=== PATIENT | male | born 1995 | race Caucasian/White ===

== ENCOUNTER 2017-02-13 12:30 | Inpatient (IN) | payer SELFPAY ==
[2017-02-13] MEDS ORDERED: cefTRIAXone SODIUM 1 GM VIAL ONE ×2 (13:04→13:08)
[2017-02-13] MEDS ORDERED: 0.9 % SODIUM CHLORIDE 50 ML IV ONE (13:05)
[2017-02-13] MEDS ORDERED: ONDANSETRON HCL/PF 4 MG/ 2ML VIAL IVP ONE (13:11)
[2017-02-13] MEDS ORDERED: KETOROLAC TROMETHAMINE 30 MG/1ML VIAL IVP ONE (13:11)
[2017-02-13] MEDS ORDERED: diphenhydrAMINE HCL 50 MG/ML VIAL IVP ONE (13:11)
[2017-02-13 13:17] LABS: BASOPHILS % 0.8 (0.0-1.5); EOSINOPHILS % 5.1 % (0.0-6.8); MEAN CORPUSCULAR HEMOGLOBIN 28.1 pg (28.0-34.0); MEAN CORPUSCULAR VOLUME 81.8 fl (80.0-100.0); MONOCYTES % 4.8 % (0.0-11.0); NEUTROPHILS # 14.1 # k/uL (1.4-7.7)
--- NOTE | 2017-02-13 13:18 | ED Physician Documentation ---
Skin Rash - HISTORIAN Historian: patient - HPI Stated Complaint: insect bite Chief Complaint: Skin Rash Additional Information: ? insect/spider bite 3 days ago. Does not remember a specific sting. Front/Back of Body, Lg (Saline): 1 - edema/erythema with central darkened area suggestive of spider bite Onset: days ago (3) Timing: still present Duration: worse Location: facial Quality: painful Identified Cause?: No When Did Symptoms Start: 02/10/17 Context: Medication Exposure: none Context: Food Exposure: none Context: Other Exposure: spider bite (probable) Further Comments: no - ROS CONST: none CVS/RESP: none EYES/ENT: none GI/: none MS/SKIN/LYMPH: none NEURO/PSYCH: none - PAST HX Past History: none Other History: none Surgeries/Procedures: Yes (hernia) Immunizations: UTD Allergies/Adverse Reactions: Allergies Allergy/AdvReac Type Severity Reaction Status Date / Time No Known Allergies Allergy Verified 02/13/17 12:41 Home Medications: Ambulatory Orders Medication Instructions Recorded NK [NK] 02/13/17 - SOCIAL HX Smoking History: cigarettes Alcohol Use: none Drug Use: none - FAMILY HX Family History: none - VITAL SIGNS Vital Signs: Vital Signs Temp Pulse Resp BP Pulse Ox 98.9 F 90 16 130/83 100 02/13/17 12:35 02/13/17 12:35 02/13/17 12:35 02/13/17 12:35 02/13/17 12:35 - REVIEWED ASSESSMENTS Nursing Assessment Reviewed: Yes Vitals Reviewed: Yes Progress - Results/Orders Results/Orders: cbc, cmp, ua ordered - Progress Progress: pt. given 50 mg Benadryl ivp, Toradol 30 mg ivp, Zofran 8 mg ivp, 2 grams rocephin ivpb, 1 liter ns, 20 meq kcl p.o. in er Critical Care Note - Critical Care Note Total Time (mins): 0 ED Results Lab/Radiology - Lab Results Lab Results: Lab Results 02/13/17 02/13/17 13:05 13:05 WBC 19.30 K/ul H K/ul (4.00-12.00) RBC 5.84 M/ul H M/ul (3.90-5.20) Hgb 16.4 g/dL g/dL (12.0-18.0) Hct 47.7 % % (37.0-53.0) MCV 81.8 fl fl (80.0-100.0) MCH 28.1 pg pg (28.0-34.0) MCHC 34.3 g/dL g/dL (30.0-36.0) RDW 12.7 % % (11.3-14.3) Plt Count 325 K/mm3 K/mm3 (130-400) Neut % (Auto) 72.8 % % (39.0-79.0) Lymph % (Auto) 15.3 % L % (16.0-50.0) Saline % (Auto) 4.8 % % (0.0-11.0) Eos % (Auto) 5.1 % % (0.0-6.8) Baso % (Auto) 0.8 (0.0-1.5) Neut # (Auto) 14.1 # k/uL H # k/uL (1.4-7.7) Lymph # (Auto) 3.0 # k/uL # k/uL (0.6-4.0) Saline # (Auto) 0.9 # k/uL # k/uL (0.0-0.9) Eos # (Auto) 1.0 # k/uL H # k/uL (0.0-0.6) Baso # (Auto) 0.2 # k/uL # k/uL (0.0-0.5) Reactive Lymphs % 1.3 % % (0.0-5.0) Reactive Lymphs # 0.3 # k/uL # k/uL (0.0-0.8) Sodium 135 mmol/L L mmol/L (136-145) Potassium 3.4 mmol/L L mmol/L (3.5-5.0) Chloride 92 mmol/L L mmol/L (98-110) Carbon Dioxide 34 mmol/L H mmol/L (20-32) BUN 6 mg/dL L mg/dL (10-26) Creatinine 0.8 mg/dL mg/dL (0.4-1.5) Estimated Creat Clear 125 Est GFR ( Amer) > 60 (60 - ) Est GFR (Non-Af Amer) > 60 (60 - ) Glucose 92 mg/dL mg/dL (70-99) Calcium 11.2 mg/dL H mg/dL (8.5-10.5) Total Bilirubin 0.7 mg/dL mg/dL (0.2-1.2) AST 23 U/L U/L (0-41) ALT 13 U/L U/L (0-45) Alkaline Phosphatase 80 U/L U/L (46-116) Total Protein 9.2 g/dL H g/dL (6.0-8.5) Albumin 5.4 g/dL g/dL (3.0-5.5) - Radiology Radiology Impressions: none ordered - Orders Orders: ED Orders Category Date Time Status Place IV Lock 1T Care 02/13/17 13:01 Active BLOOD CULTURE Routine Lab 02/13/17 13:23 Received CBC/PLATELET/DIFF Routine Lab 02/13/17 13:05 Completed CMP Routine Lab 02/13/17 13:05 Completed LACTIC ACID Routine Lab 02/13/17 13:22 Received URINALYSIS Routine Lab 02/13/17 Ordered 0.9 % Sodium Chloride [Normal Saline] 1,000 ml Med 02/13/17 13:30 Ordered IV .Q1H 0.9 % Sodium Chloride [Sodium Chloride] 50 ml Med 02/13/17 13:05 Discontinued IV .STK-MED Ketorolac Tromethamine [Toradol] Med 02/13/17 13:11 Discontinued 30 mg IVP NOW ONE Ondansetron HCl/Pf [Zofran 4 mg/2 ml] Med 02/13/17 13:11 Discontinued 8 mg IVP NOW ONE Potassium Chloride [Klor-Con M20] Med 02/13/17 14:06 Discontinued 20 meq PO NOW ONE cefTRIAXone SODIUM ADVANTAGE [Rocephin Advantage] 2 gm Med 02/13/17 14:00 Ordered Normal Saline Add-[place] [Sodium Chloride] 50 ml IV QD cefTRIAXone SODIUM [Rocephin] Med 02/13/17 13:04 Discontinued 1 gm .ROUTE .STK-MED ONE cefTRIAXone SODIUM [Rocephin] Med 02/13/17 13:08 Discontinued 1 gm .ROUTE .STK-MED ONE diphenhydrAMINE HCL [Benadryl] Med 02/13/17 13:11 Discontinued 50 mg IVP NOW ONE Skin Rash Physical Exam - EXAM General Appearance: alert, moderate distress Skin: warm,dry, abscess, tender indurated area Location: face Character: asymmetric, patchy Symptoms: warmth, tenderness, swelling, induration Extremities: non-tender, nml ROM, no edema EENT: lips nml, gums nml, pharynx nml, other (right dagmar perioribital edema, left eye lesser degree) Neck: trachea midline, no swelling Respiratory: no resp distress, chest non-tender, breath sounds normal CVS: reg. rate & rhythm, heart sounds nml Abdomen: non-tender, no organomegaly, nml bowel sounds Neuro/Psych: oriented x3, CN's nml as tested, motor nml, sensation nml, mood/ affect nml Discharge Clincal Impression: Abscess Cellulitis Qualifiers: Site of cellulitis: face Qualified Code(s): L03.211 - Cellulitis of face Referrals: Primary Doctor,No [REFERRING] - 2 Days Home Medications: Ambulatory Orders NK [NK] 02/13/17 Comments: Case discussed with Dr. Lizama who accepts admission Condition: Stable Decision to Admit: [id number] Date of Decison to Admit: 02/13/17 Decision Time: 14:20
[2017-02-13 13:29] LABS: eGFR (African) > 60; eGFR (Non-African) > 60
[2017-02-13] MEDS ORDERED: 0.9 % SODIUM CHLORIDE 1,000 ML IV SCH ×2 (13:30→18:31)
[2017-02-13] MEDS ORDERED: [UNRECOGNIZED DRUG - OTHER] IV SCH (14:00)
[2017-02-13] MEDS ORDERED: POTASSIUM CHLORIDE 20 MEQ TABLET.ER PO ONE (14:06)
[2017-02-13 16:35] VITALS: BMI 20.2
--- NOTE | 2017-02-13 18:21 | History and Physical Report ---
History of Present Illnes - History of Present Illness Reason for Visit: facial infection History of Present Illness: 22yo white male who sustained a spider bite, ? brown recluse, one week ago. Started toswelling and become red the nex day. Has gradually gotten worse. No fever or chill noted. Was seen in the ED and felt to have a cellulitis and was admitted to the hospital for further evaluation and treatment. - Past Medical History Renal/: Other - Past Surgical History Past Surgical History: Other (bilateral hernia repair, repair for strabismus) - Past Family History Mother Family History: (at 53yo unkown cause) Father Family History: None (good health) Brother 1 Family History: None (good health) Sister 1 Family History: None (good health) - Past Social History Smoke: <1 pack per day (1/2 ppd) Alcohol: None Drugs: None Lives: With Family Domestic Violence: Negative - Health Maintenance Health Maintenance: Influenza Vaccine. denies: Cholesterol, Pneumococcal Vaccine Influenza Vaccine: Current for this Influenza Season Pneumonia Vaccine: No Resuscitation Status: Resusciation Status Resuscitation Status Full Code - Unable to Obtain History Unable to Obtain: No Review of Systems - Review of Systems Constitutional: negative: Fever, Chills Eyes: negative: pain, vision change, conjunctivae inflammation ENT: negative: Ear Pain, Ear Discharge, Nose Pain, Nose Discharge, Nose Congestion, Mouth Pain, Mouth Swelling, Throat Pain, Throat Swelling Respiratory: negative: Cough, Dry, Shortness of Breath, Hemoptysis, SOB with Excertion, Sputum, Wheezing Cardiovascular: negative: Chest Pain, Palpitations, Paroxysmal Noc. Dyspnea, Light Headedness Gastrointestinal: negative: Nausea, Vomiting, Abdominal Pain, Diarrhea, Constipation, Hematochezia Genitourinary: negative: Dysuria, Frequency, Hematuria Musculoskeletal: negative: Neck Pain, Shoulder Pain, Arm Pain, Back Pain Skin: Other (see PI). negative: Rash Neurological: negative: Weakness, Numbness - Medications/Allergies Allergies/Adverse Reactions: Allergies Allergy/AdvReac Type Severity Reaction Status Date / Time No Known Allergies Allergy Verified 02/13/17 12:41 Current Inpatient Medications: Current Inpatient Medications Ceftriaxone Sodium 2 gm/ (Sodium Chloride) 50 mls @ 50 mls/hr IV QD GERALD Last Admin: 02/13/17 13:20 Dose: 50 mls/hr Sodium Chloride (Normal Saline) 1,000 mls @ 1,000 mls/hr IV .Q1H GERALD Last Admin: 02/13/17 13:10 Dose: 1,000 mls/hr Exam - Exam Vital Signs: Vital Signs (72 hours) 02/13/17 02/13/17 02/13/17 14:45 15:14 18:12 Temperature 99.4 F 99.4 F 97.5 F L Pulse Rate [ 66 75 78 Right Pulse ox] Respiratory 16 16 16 Rate Blood Pressure 120/62 122/65 113/53 [Left Arm] O2 Sat by Pulse 98 96 97 Oximetry General: Alert, Oriented to Person, Oriented to Place, Oriented to Time, Cooperative, Mild distress HEENT: Atraumatic, PERRLA, Mouth Mucous membr. moist/[place], Nose Mucous membr. moist/[place], Dentition Normal, Hearing Grossly Normal Neck: Normal Range of Motion. No: Lymphadenopathy Carotids: WNL Thyroid: WNL Lungs: Clear to auscultation, Normal air movement, Speaks full Sentences, Respiratory Distress. No: Wheezes, Rales, Rhonchi Cardiovascular: Regular rate, Normal S1, Normal S2, No murmurs Abdomen: Normal bowel sounds, Soft, No tenderness, No hepatospenomegaly, No masses Integumentary: Normal, [place], Warm. No: Other (swelling to the right periorbital area, erythematous and tender) Extremities: No clubbing, No cyanosis, No edema, Normal pulses Neurological: Normal gait, Normal speech, Strength Equal Bilat, Sensation intact , Cranial nerves 3-12 NL, Reflexes 2+ Psych/Mental Status: Mental status NL, Mood NL, Appropriate Affect, Intact Judgment Assessment/Plan - Assessment/Plan (1) Cellulitis Status: Acute Qualifiers: Site of cellulitis: face Qualified Code(s): L03.211 - Cellulitis of face Assessment: Gerardo continue with ceftriaxone and monitor CBC. VTE Assessment - RISK FACTOR SCORE VTE RISK FACTOR SCORES: OTHER (no risk factors) - RISK VTE LOW RISK: SCORE OF 1 OR LESS (RISK PROXIMAL DVT 0.4%) NO PROPHYLAXIS NEEDED
[2017-02-13] MEDS ORDERED: ACETAMINOPHEN 325 MG TABLET PO PRN (18:40)
[2017-02-13] MEDS ORDERED: traMADol HCL 50 MG TABLET PO PRN (18:41)
[2017-02-14 06:41] LABS: BASOPHILS % 0.9 (0.0-1.5); EOSINOPHILS % 8.3 % (0.0-6.8); MEAN CORPUSCULAR HEMOGLOBIN 27.8 pg (28.0-34.0); MEAN CORPUSCULAR VOLUME 84.2 fl (80.0-100.0); MONOCYTES % 5.8 % (0.0-11.0)
--- NOTE | 2017-02-14 08:09 | Inpatient Progress Note ---
Subjective - Required Recertification Statement I anticipate X number of days because-include discharge plan: 1 day - Review of Systems Subjective: Patient is doing better. States that the facial area is not as tender, he is able to slightly open his eye. Does note complain of any eye pain or problems. Has ran a low grade fever last noc. General: Chills HEENT: Denies: Head Aches Objective - Exam Vitals and I&O: Vital Signs Temp 98.7 F 02/14/17 07:35 Pulse 85 02/14/17 07:35 Resp 20 02/14/17 07:35 BP 115/78 02/14/17 07:35 Pulse Ox 98 02/14/17 07:35 Intake & Output 02/13/17 02/13/17 02/14/17 11:59 23:59 11:59 Intake Total 120 Balance 120 Weight 55.338 kg Intake: Oral 120 Other: Voiding Method Toilet Toilet General: Alert, Oriented to Person, Oriented to Place, Oriented to Time, Cooperative HEENT: Atraumatic Neck: Supple, No JVD, No LAD Lungs: Clear to auscultation, Normal air movement, Speaks full Sentences. No: Wheezes, Rales, Rhonchi Cardiovascular: Regular rate, Normal S1, Normal S2, No murmurs Skin: Cellulitis (right periorbital area. Swelling is slightly improved. warp bleaching vat tender to touch and erythematous. ) Psych/Mental Status: Mental status NL, Appropriate Affect - Results Results: Laboratory Results WBC 11.19 K/ul (4.00-12.00) 02/14/17 06:20 RBC 5.22 M/ul (3.90-5.20) H 02/14/17 06:20 Hgb 14.5 g/dL (12.0-18.0) 02/14/17 06:20 Hct 44.0 % (37.0-53.0) 02/14/17 06:20 MCV 84.2 fl (80.0-100.0) 02/14/17 06:20 MCH 27.8 pg (28.0-34.0) L 02/14/17 06:20 MCHC 33.0 g/dL (30.0-36.0) 02/14/17 06:20 RDW 12.8 % (11.3-14.3) 02/14/17 06:20 Plt Count 288 K/mm3 (130-400) 02/14/17 06:20 Neut % (Auto) 53.5 % (39.0-79.0) 02/14/17 06:20 Lymph % (Auto) 29.8 % (16.0-50.0) 02/14/17 06:20 [place] % (Auto) 5.8 % (0.0-11.0) 02/14/17 06:20 Eos % (Auto) 8.3 % (0.0-6.8) H 02/14/17 06:20 Baso % (Auto) 0.9 (0.0-1.5) 02/14/17 06:20 Neut # (Auto) 6.0 # k/uL (1.4-7.7) 02/14/17 06:20 Lymph # (Auto) 3.3 # k/uL (0.6-4.0) 02/14/17 06:20 [place] # (Auto) 0.6 # k/uL (0.0-0.9) 02/14/17 06:20 Eos # (Auto) 0.9 # k/uL (0.0-0.6) H 02/14/17 06:20 Baso # (Auto) 0.1 # k/uL (0.0-0.5) 02/14/17 06:20 Reactive Lymphs % 1.7 % (0.0-5.0) 02/14/17 06:20 Reactive Lymphs # 0.2 # k/uL (0.0-0.8) 02/14/17 06:20 Sodium 135 mmol/L (136-145) L 02/13/17 13:05 Potassium 3.4 mmol/L (3.5-5.0) L 02/13/17 13:05 Chloride 92 mmol/L (98-110) L 02/13/17 13:05 Carbon Dioxide 34 mmol/L (20-32) H 02/13/17 13:05 BUN 6 mg/dL (10-26) L 02/13/17 13:05 Creatinine 0.8 mg/dL (0.4-1.5) 02/13/17 13:05 Estimated Creat Clear 125 02/13/17 13:05 Est GFR ( Amer) > 60 (60-) 02/13/17 13:05 Est GFR (Non-Af Amer) > 60 (60-) 02/13/17 13:05 Glucose 92 mg/dL (70-99) 02/13/17 13:05 Calcium 11.2 mg/dL (8.5-10.5) H 02/13/17 13:05 Total Bilirubin 0.7 mg/dL (0.2-1.2) 02/13/17 13:05 AST 23 U/L (0-41) 02/13/17 13:05 ALT 13 U/L (0-45) 02/13/17 13:05 Alkaline Phosphatase 80 U/L (46-116) 02/13/17 13:05 Total Protein 9.2 g/dL (6.0-8.5) H 02/13/17 13:05 Albumin 5.4 g/dL (3.0-5.5) 02/13/17 13:05 Assessment/Plan - Assessment/Plan (1) Cellulitis Status: Acute Current Visit: Yes Qualifiers: Site of cellulitis: face Qualified Code(s): L03.211 - Cellulitis of face Assessment: Will continue with rocephin IV. Hope to discharge in AM.
[2017-02-14] MEDS ORDERED: SALINE FLUSH 10 ML DISP.SYRIN IVF ONE (13:47)
[2017-02-14] MEDS ORDERED: cefTRIAXone SODIUM 1 GM in 0.9 % SODIUM CHLORIDE 50 ML IV SCH (14:00)
[2017-02-14] MEDS ORDERED: [UNRECOGNIZED DRUG - OTHER] IV SCH (14:00)
[2017-02-14] MEDS ORDERED: ONDANSETRON HCL/PF 4 MG/ 2ML VIAL IVP PRN (19:56)
[2017-02-14] MEDS: cefTRIAXone SODIUM ADVANTAGE 1 GM in NORMAL SALINE ADD-VANTAGE 50 ML IV SCH ×2 (20:03→22:29)
[2017-02-14] MEDS: KETOROLAC TROMETHAMINE 30 MG/1ML VIAL IVP SCH (20:04)
[2017-02-14] MEDS ORDERED: CLINDAMYCIN PHOSPHATE 300 MG/2 ML VIAL ONE (20:09)
[2017-02-14] MEDS ORDERED: 0.9 % SODIUM CHLORIDE 50 ML IV ONE (20:09)
[2017-02-14] MEDS ORDERED: 0.9 % SODIUM CHLORIDE 1,000 ML IV ONE (20:16)
[2017-02-14] MEDS ORDERED: POTASSIUM CHLORIDE 20 MEQ TABLET.ER ONE (20:16)
[2017-02-14] MEDS ORDERED: NICOTINE 21mg 1 EACH PATCH.TD24 TD ONE (20:23)
[2017-02-14] MEDS: CLINDAMYCIN PHOSPHATE 300 MG in 0.9 % SODIUM CHLORIDE 50 ML IV SCH ×2 (20:28→22:28)
[2017-02-14] MEDS: 0.9 % SODIUM CHLORIDE 1,000 ML IV SCH (20:28)
[2017-02-14] MEDS: POTASSIUM CHLORIDE 20 MEQ TABLET.ER PO SCH (20:29)
[2017-02-14] MEDS: NICOTINE 21mg 1 EACH PATCH.TD24 TD SCH (20:29)
[2017-02-14] MEDS: diphenhydrAMINE HCL 50 MG/ML VIAL IVP SCH (22:28)
--- NOTE | 2017-02-15 00:16 | Diagnostic Imaging Report ---
CHANNING MALDONADO~ [facility] [address] [facility] [address] [address] ~ ~ ~ ~ Report Submission Date: Feb 14, 2017 8:29:57 PM CDT Patient ~ Study Name: HI OLMOS ~ Date: Feb 14, 2017 8:05:47 PM CDT ~ Modality Type: CT\SR Gender: M ~ Description: CT MAXILLOFACIAL W/O D : 97 ~ Institution: [facility] Physician: CHANNING MALDONADO ~ ~ ~ ~ Examination: CT maxillofacial History: Swelling Comparison exams: None provided Technique: Axial imaging with sagittal and coronal reconstruction Findings: Significant justa right orbital swelling. No suspicious fluid collection within the soft tissue to suggest abscess. Medial and inferior orbital gandhi are intact. Anterior and posterior maxillary gandhi are also intact. Zygomatic arches without fracture.~ No air fluid levels within the sinuses. Mild mucous thickening right maxillary sinus. Remaining visualized osseous structures are without irregularity. Septal deviation to the right. Impression: Significant right orbital soft tissue inflammatory changes. Findings compatible with significant cellulitis. No obvious abscess for a noncontrast exam. Minimal right maxillary mucous thickening without air-fluid level. No osseous abnormality. ~ Electronically signed on Feb 14, 2017 8:29:57 PM CDT by: Eric CAZARES
[2017-02-15] MEDS: KETOROLAC TROMETHAMINE 30 MG/1ML VIAL IVP SCH ×3 (00:55→13:30)
[2017-02-15] MEDS: diphenhydrAMINE HCL 50 MG/ML VIAL IVP SCH ×3 (00:55→13:29)
[2017-02-15] MEDS ORDERED: POTASSIUM CHLORIDE 20 MEQ TABLET.ER ONE (03:41)
[2017-02-15] MEDS ORDERED: NICOTINE 21mg 1 EACH PATCH.TD24 TD ONE (03:41)
[2017-02-15] MEDS ORDERED: CLINDAMYCIN PHOSPHATE 300 MG/2 ML VIAL ONE (03:41)
[2017-02-15] MEDS ORDERED: 0.9 % SODIUM CHLORIDE 1,000 ML IV ONE (04:43)
[2017-02-15] MEDS: 0.9 % SODIUM CHLORIDE 1,000 ML IV SCH (04:47)
[2017-02-15 06:34] LABS: BASOPHILS % 0.9 (0.0-1.5); EOSINOPHILS % 9.6 % (0.0-6.8); MEAN CORPUSCULAR HEMOGLOBIN 27.4 pg (28.0-34.0); MEAN CORPUSCULAR VOLUME 85.4 fl (80.0-100.0); MONOCYTES % 4.9 % (0.0-11.0); NEUTROPHILS # 7.1 # k/uL (1.4-7.7)
[2017-02-15 06:47] LABS: eGFR (African) > 60; eGFR (Non-African) > 60
[2017-02-15] MEDS ORDERED: 0.9 % SODIUM CHLORIDE 50 ML IV ONE (08:34)
--- NOTE | 2017-02-15 08:51 | Discharge Summary ---
Discharge Summary - Discharge Sumary History of Present Illness: 22yo white male who sustained a spider bite, ? gela damon, one week ago. Started toswelling and become red the nex day. Has gradually gotten worse. No fever or chill noted. Was seen in the ED and felt to have a cellulitis and was admitted to the hospital for further evaluation and treatment. Home Medications: Ambulatory Orders Medication Instructions Recorded Clindamycin HCl [Cleocin] 300 mg PO QID #28 capsule 02/15/17 Allergies/Adverse Reactions: Allergies Allergy/AdvReac Type Severity Reaction Status Date / Time No Known Allergies Allergy Verified 02/13/17 12:41 Patient Problems: Current Active Problems Problem Status Onset Abscess Acute Cellulitis Acute Discharge Summary: Patient was started on clindamycin and Rocephin which he tolerated well. Patient 's WBC count dropped. He did run a low grade fever. The periorbital swelling and erythema improved. It was felt that the patient could be managed on oral antibiotics and was discharged home. - Final Diagnosis (1) Cellulitis Problems: improved.
[2017-02-15] MEDS: cefTRIAXone SODIUM ADVANTAGE 1 GM in NORMAL SALINE ADD-VANTAGE 50 ML IV SCH (09:00)
[2017-02-15] MEDS: POTASSIUM CHLORIDE 20 MEQ TABLET.ER PO SCH (09:06)
[2017-02-15] MEDS: NICOTINE 21mg 1 EACH PATCH.TD24 TD SCH (09:06)
[2017-02-15] MEDS: CLINDAMYCIN PHOSPHATE 300 MG in 0.9 % SODIUM CHLORIDE 50 ML IV SCH ×2 (10:21→13:30)
[2017-02-15 13:29] VITALS: BP 119/70
== END 2017-02-15 13:05 | disposition home or self-care (01) | DRG 125 ==
LOC: ED 12:30 → SOUTH 14:35
PROVIDERS: ADMIT Family Medicine; ATTEND Family Medicine
DX: S00.269A Insect bite (nonvenomous) of unspecified eyelid and periocular area, initial encounter (principal); L03.211 Cellulitis of face; W57.XXXA Bitten or stung by nonvenomous insect and other nonvenomous arthropods, initial encounter; Y93.9 Activity, unspecified; Y99.9 Unspecified external cause status
CPT/HCPCS: 36415; 70486; 80048; 80053; 83605; 85025; 87040; A9270; J0696; J1200; J1885; J2405; J3490; J7030; 99221; 99222; 99238; 99284; S1016

== ENCOUNTER 2018-08-12 11:06 | Emergency (ER) | payer SELFPAY ==
[2018-08-12] MEDS ORDERED: 0.9 % SODIUM CHLORIDE 1,000 ML IV ONE ×2 (11:10→12:08)
--- NOTE | 2018-08-12 11:32 | ED Physician Documentation ---
Overdose - HPI Stated Complaint: unintentional overdose Chief Complaint: Overdose Additional Information: Patient presents to ED with a drug overdose of tramadol. Patient has left lower dental pain. He was given Tramadol 50mg by his father this morning around 0700. At that time he took 2 tablet. He then took 8 tablets over the next 30 minutes. Once his father realized what had happened he called poison control who stated 400mg of tramadol was the cut off. He was brought by ambulance to the ED because he father is unsure how many pills he actually took. Patient states he took 8-10 tablets this morning. Onset: hours (4) Intent: other (accidental ). denies: suicide, no prior thoughts Severity: mild - ROS CONST: other (toothache) NEURO/PSYCH: denies: headache EYES/ENT: denies: problems with vision CVS/RESP: denies: chest pain, shortness of breath GI/: denies: nausea, vomiting - PAST HX Psychiatric problems: denies: bipolar disorder DVT/PE Risk Factors: none Surgical History: denies: no surgical history Allergies/Adverse Reactions: Allergies Allergy/AdvReac Type Severity Reaction Status Date / Time No Known Allergies Allergy Verified 08/12/18 11:56 - Social HX Smoking History: cigarettes Drug Use: marijuana, methamphetamines - Family HX Family HX: denies: mental illness - VITAL SIGNS Vital Signs: Vital Signs Temp Pulse Resp BP Pulse Ox 96.8 F L 85 18 122/82 99 08/12/18 11:10 08/12/18 13:37 08/12/18 13:37 08/12/18 13:37 08/12/18 13:37 - REVIEWED ASSESSMENTS Nursing Assessment Reviewed: Yes Vitals Reviewed: Yes Progress - Progress Progress: 1345 Patient states he is feeling better. He is more alert. He wishes to go home. - EKG/XRAY/CT Comments: sinus bradycardia 58 bpm QT interval 436 ms ED Results Lab/Radiology - Lab Results Lab Results: Lab Results 08/12/18 08/12/18 08/12/18 Unknown Unknown 11:52 WBC RBC Hgb Hct MCV MCH MCHC RDW Plt Count Neut % (Auto) Lymph % (Auto) [place] % (Auto) Eos % (Auto) Baso % (Auto) Neut # (Auto) Lymph # (Auto) [place] # (Auto) Eos # (Auto) Baso # (Auto) Sodium 137 mmol/L mmol/L (136-145) Potassium 3.7 mmol/L mmol/L (3.5-5.1) Chloride 105 mmol/L mmol/L (98-107) Carbon Dioxide 24 mmol/L mmol/L (22-30) BUN 14 mg/dL mg/dL (9-20) Creatinine 0.80 mg/dL mg/dL (0.66-1.25) Estimated Creat Clear 117 Est GFR ( Amer) > 60 (60 - ) Est GFR (Non-Af Amer) > 60 (60 - ) Glucose 113 mg/dL H mg/dL (74-106) Calcium 8.5 mg/dL mg/dL (8.4-10.2) Total Bilirubin 0.5 mg/dL mg/dL (0.2-1.3) AST 24 U/L U/L (15-46) ALT 24 U/L U/L (13-69) Alkaline Phosphatase 66 U/L U/L (38-126) Total Protein 6.3 g/dL g/dL (6.3-8.2) Albumin 4.0 g/dL g/dL (3.5-5.0) Opiates Screen Negative ng/mL ng/mL (<300) Oxycodone Screen Negative ng/mL ng/mL (<100) Methadone Screen Negative ng/mL ng/mL (<200) Acetaminophen < 10.0 ug/mL L ug/mL (10-30) Ur Barbiturates Screen Negative ng.mL ng.mL (<200) Tricyclic Antidepress Negative ng/mL ng/mL (<300) Phencyclidine Screen Negative ng/mL ng/mL (< 25) Amphetamines Screen Non negative ng/mL H ng/mL (<500) U Methamphetamines Scrn Non negative ng/mL H ng/mL (<500) MDMA Negative ng/mL ng/mL (<500) Benzodiazepines Screen Negative ng/mL ng/mL (<150) Urine Cocaine Screen Negative ng/mL ng/mL (<150) U Cannabinoids Screen Non negative ng/mL H ng/mL (< 50) 08/12/18 11:25 WBC 19.20 K/ul H K/ul (4.00-12.00) RBC 5.45 M/ul H M/ul (3.90-5.20) Hgb 14.9 g/dL g/dL (12.0-18.0) Hct 45.5 % % (37.0-53.0) MCV 83.0 fl fl (80.0-100.0) MCH 27.3 pg L pg (28.0-34.0) MCHC 32.8 g/dL g/dL (30.0-36.0) RDW 13.9 % % (11.3-14.3) Plt Count 363 K/mm3 K/mm3 (130-400) Neut % (Auto) 70.5 % % (39.0-79.0) Lymph % (Auto) 16.9 % % (16.0-50.0) [place] % (Auto) 6.9 % % (0.0-11.0) Eos % (Auto) 4.7 % % (0.0-6.8) Baso % (Auto) 1.0 (0.0-1.5) Neut # (Auto) 13.6 # k/uL H # k/uL (1.4-7.7) Lymph # (Auto) 3.3 # k/uL # k/uL (0.6-4.0) [place] # (Auto) 1.3 # k/uL H # k/uL (0.0-0.9) Eos # (Auto) 0.9 # k/uL H # k/uL (0.0-0.6) Baso # (Auto) 0.2 # k/uL # k/uL (0.0-0.5) Sodium Potassium Chloride Carbon Dioxide BUN Creatinine Estimated Creat Clear Est GFR ( Amer) Est GFR (Non-Af Amer) Glucose Calcium Total Bilirubin AST ALT Alkaline Phosphatase Total Protein Albumin Opiates Screen Oxycodone Screen Methadone Screen Acetaminophen Ur Barbiturates Screen Tricyclic Antidepress Phencyclidine Screen Amphetamines Screen U Methamphetamines Scrn MDMA Benzodiazepines Screen Urine Cocaine Screen U Cannabinoids Screen - Orders Orders: ED Orders Category Date Time Status Place IV Lock 1T Care 08/12/18 11:09 Active ACETAMINOPHEN LEVEL Stat Lab 08/12/18 Completed AMPHETAMINES,QUANT,URINE Routine Lab 08/12/18 12:40 Received CBC/PLATELET/DIFF Routine Lab 08/12/18 11:25 Completed CMP Routine Lab 08/12/18 11:52 Completed DRUG SCREEN URINE MEDICAL ONLY Routine Lab 08/12/18 Completed SALICYLATE LEVEL Stat Lab 08/12/18 Received 0.9 % Sodium Chloride [Normal Saline] 1,000 ml Med 08/12/18 11:10 Discontinued IV Q1H 0.9 % Sodium Chloride [Normal Saline] 1,000 ml Med 08/12/18 12:08 Discontinued IV Q1H Clindamycin HCl [Cleocin] Med 08/12/18 11:36 Discontinued 300 mg PO NOW ONE Oxygen Daily Oxygen 08/12/18 12:15 Ordered EKG WITH COMPARISON Stat Ther 08/12/18 Ordered Overdose Physical Exam - Physical Exam General Appearance: no acute distress, other (opens eyes to voice, answers question appropriately, quickly returns to sleep) ENT: pharynx nml, other (left molar tooth fracture) Eyes: PERRL Mental Status: mood/affect nml, slow responsiveness Suicide Attempts: denies Orientation: nml x3 Cranial Nerves: CN's intact as tested Sensory, Motor: nml motor response Neck: normal inspection. No: lymphadenopathy Respiratory: no resp distress, breath sounds normal CVS: reg rate & rhythm, heart sounds normal Abdomen: non-tender, nml bowel sounds Skin: warm/dry Extremities: non-tender, no edema Discharge Clincal Impression: Polysubstance abuse Accidental drug overdose Qualifiers: Encounter type: initial encounter Qualified Code(s): T50.901A - Poisoning by unspecified drugs, medicaments and biological substances, accidental (unintentional), initial encounter Referrals: Devyn Lizama MD [Primary Care Provider] - 2 Days Additional Instructions: 1. Tylenol and/or ibuprofen as needed for pain. These may be taken together for better pain control 2. Take Clindamycin as directed. Stop taking Amoxicillin 3. Follow up with Dentist as soon as possible 4. Follow up with PCP within 1 week 5. Do not take medications which are not prescribed to you. 6. Return to ED for new or worsening symptoms. Condition: Stable Disposition: 01 HOME, SELF-CARE Decision to Admit: NO Date of Decison to Admit: 08/12/18 Decision Time: 14:05
[2018-08-12] MEDS ORDERED: CLINDAMYCIN HCL 150 MG CAPSULE PO ONE (11:36)
[2018-08-12 11:38] LABS: EOSINOPHILS % 4.7 % (0.0-6.8); MEAN CORPUSCULAR HEMOGLOBIN 27.3 pg (28.0-34.0); MONOCYTES % 6.9 % (0.0-11.0); NEUTROPHILS # 13.6 # k/uL (1.4-7.7)
[2018-08-12 12:39] LABS: eGFR (Non-African) > 60
[2018-08-12 12:58] LABS: CANNABINOIDS NON NEGATIVE ng/mL (< 50); METHYLENEDIOXYMETHAMPHETAMINE NEGATIVE ng/mL (<500)
[2018-08-12 17:35] VITALS: BP 112/78
[2018-08-18 19:21] LABS: CANNABINOIDS CONFIRMATION 91 ng/mL (<15)
== END 2018-08-12 14:24 | disposition home or self-care (01) ==
LOC: ED 11:06
DX: F19.10 Other psychoactive substance abuse, uncomplicated (principal); T40.4X1A Poisoning by other synthetic narcotics, accidental (unintentional), initial encounter; Y92.009 Unspecified place in unspecified non-institutional (private) residence as the place of occurrence of the external cause
CPT/HCPCS: 36415; 80053; 80377; 85025; 93005; 99283; 99284; A9270; J7030; G0481